=== PATIENT | female | born 1970 | race Caucasian/White ===

== ENCOUNTER → 2016-09-20 | Outpatient (CLI) | payer OTHER ==
--- NOTE | 2016-09-20 08:14 | CT ---
EXAMINATION TYPE: CT abdomen w con DATE OF EXAM: 09/20/2016 7:38 AM COMPARISON: 09/14/2010 HISTORY: Pain RUQ and mid upper abdomen CT DLP: 230.8 mGycm Automated exposure control for dose reduction was used. TECHNIQUE: Helical acquisition of images was performed from the lung bases through the top of iliac crest to include entire abdomen. CONTRAST: Performed with Oral Contrast and with IV Contrast, patient injected with 100 mL of Omnipaque 300. FINDINGS: LUNG BASES: No significant abnormality is appreciated. LIVER/GB: Postcholecystectomy clips are noted. Mild intrahepatic biliary dilation likely secondary to postcholecystectomy changes. Small hypodensity within the left lobe of the liver appears increased i n size from the previous exam of 2010 is too small to characterize measuring 6 mm. Still most likely in the basis of 8 hepatic cyst. The extrahepatic common bile duct measures 1 cm within normal limits for postcholecystectomy patient.. PANCREAS: No significant abnormality is seen. SPLEEN: No significant abnormality is seen. ADRENALS: No significant abnormality is seen. KIDNEYS: No significant abnormality is seen. BOWEL: No significant abnormality is seen. LYMPH NODES: No pathologic adenopathy identified. OSSEOUS STRUCTURES: Postsurgical change involving the lumbar vertebral column noted. OTHER: Aorta of normal caliber with atherosclerotic changes. IMPRESSION: POSTCHOLECYSTECTOMY CHANGES WITH MILD INTRA AND EXTRAHEPATIC BILIARY DUCTAL DILATION. 6 MM HYPODENSITY LEFT LOBE OF THE LIVER IS INCREASED IN SIZE FROM 2011 STILL LIKELY RELATED TO SIMPLE CYST. PROMINENT TO VENOUS STRUCTURES IN THE SPLENIC HILUM CORRELATE FOR SPLENIC VARICES. CORRELATE WITH JAISON ER FUNCTION STUDIES..
== END | disposition home or self-care (01) ==
LOC: RADCTMAIN 07:07
PROVIDERS: ATTEND Family Medicine
DX: K76.89 Other specified diseases of liver (principal); K83.8 Other specified diseases of biliary tract; Z90.49 Acquired absence of other specified parts of digestive tract
CPT/HCPCS: 74160; Q9967

== ENCOUNTER → 2016-09-22 | Outpatient (CLI) | payer OTHER ==
--- NOTE | 2016-09-22 12:32 | FL ---
EXAMINATION TYPE: FL UGI air DATE OF EXAM: 09/22/2016 9:45 AM COMPARISON: Correlation CT 09/20/2016 HISTORY: 46-year-old female with nausea and upper abdominal pain for 6 months. TECHNIQUE: A double contrast UGI study is performed. FINDINGS: The esophagus has a normal course, caliber, and mucosa. Mild tertiary peristaltic contractions are se en. There is a tiny sliding hiatal hernia demonstrated and mild spontaneous gastroesophageal reflux. Stomach shows moderate fold thickening and irregularity especially along the greater curvature. Otherwise, the stomach and duodenum are free of any persistent filling defect. Impression: 1. Tiny sliding hiatal hernia and mild spontaneous gastroesophageal reflux. 2. Moderate fold thickening and irregularity within the stomach, especially along the greater curvatu re. Correlate for gastritis. Given the fold irregularity, direct visualization should be considered.
== END | disposition home or self-care (01) ==
LOC: RADFLWHC 08:50
PROVIDERS: ATTEND Family Medicine
DX: K31.89 Other diseases of stomach and duodenum (principal); K21.9 Gastro-esophageal reflux disease without esophagitis; K44.9 Diaphragmatic hernia without obstruction or gangrene
CPT/HCPCS: 74246

== ENCOUNTER 2016-09-29 11:13 | Day surgery (SDC) | payer OTHER ==
[2016-09-28 08:37] VITALS: BMI 22.0
[~2016-09-29 11:13] MED LIST: LACTATED RINGERS 1,000 ML IV SCH
[2016-09-29 11:48] VITALS: TEMP 97.9
[2016-09-29] MEDS ORDERED: LIDOCAINE 1% 20 ML VIAL (10MG/ML) FOR IV START INTRADERMA ONE (11:50)
[2016-09-29] MEDS ORDERED: LIDOCAINE 1% INJ 10MG/ML (20 ML MDV) ONE (12:07)
[2016-09-29] MEDS ORDERED: PROPOFOL 10 MG/ML 20 ML VIAL IV ONE (12:07)
--- NOTE | 2016-09-29 12:26 | P.PCN ---
Date of Procedure: 09/29/16 Procedure(s) Performed: Procedure: Esophagogastroduodenoscopy and biopsy. Preoperative diagnosis: Epigastric pain, nausea and weight loss. Postoperative diagnosis: 1. Small sliding hiatal hernia with no obvious esophagitis or complicated reflux disease. 2. Mild gastritis and duodenitis. 3. Multiple biopsies obtained from the duodenum, antrum and esophagus. Preparation and sedation: Were provided by anesthesia. Brief clinical history: The patient is a 46-year-old female who is referred for this evaluation for the above reasons. This has been going on for a year or so and she has lost around 15 pounds over that period of time. Procedure: With the patient on her left lateral decubitus position and after informed consent and adequate sedation, I passed the Olympus-GIF 160 video upper endoscope through the cricopharyngeus down the esophagus. GE junction was around 36-37 cm from the incisors and there was a small sliding hiatal hernia. The esophagus did not show any erosions, ulcers, strictures or Curiel' s esophagus. The endoscope was then passed into the stomach which was insufflated with air and inspected in detail including the retroflex view in the cardia. There was some mottling and erythema in the antrum but no ulcers or erosions. Pyloric channel did not show any ulcers. Duodenal bulb, post bulbar area and descending duodenum showed some erythema. I obtained multiple biopsies from the duodenum, antrum and esophagus then the endoscope was withdrawn. The patient tolerated the procedure well. Plan: The patient was reassured. Will await biopsy results. She will follow- up with you as planned. Further plans based on her course.
[2016-09-29 12:53] VITALS: BP 122/81; PULSE 74; RESP 16
== END 2016-09-29 13:02 | disposition home or self-care (01) ==
LOC: ORWHC2ENDO 11:13
DX: K29.50 Unspecified chronic gastritis without bleeding (principal); K21.0 Gastro-esophageal reflux disease with esophagitis; K44.9 Diaphragmatic hernia without obstruction or gangrene; K29.80 Duodenitis without bleeding; G89.29 Other chronic pain; M54.16 Radiculopathy, lumbar region; Z79.891 Long term (current) use of opiate analgesic; Z79.899 Other long term (current) drug therapy; Z88.5 Allergy status to narcotic agent; Z72.0 Tobacco use
CPT/HCPCS: 81025; 88305; 88342; 43239; J2001; J2704

== ENCOUNTER → 2016-10-18 | Outpatient (CLI) | payer OTHER ==
--- NOTE | 2016-10-18 13:21 | CT ---
EXAMINATION TYPE: CT cervical spine wo con DATE OF EXAM: 10/18/2016 1:10 PM COMPARISON: 12/21/2015 HISTORY: 46-year-old female cervical radiculopathy TECHNIQUE: Contiguous axial scanning of the cervical spine without IV contrast. Coronal and sagittal reconstructions performed. CT DLP: 275.5 mGycm Automated exposure control for dose reduction was used. FINDINGS: No craniocervical junction abnormality, predental space widening, or prevertebral soft tissue swellin g. Redemonstrated are changes of ACDF from C4 through C7 levels. There appears to be some residual poste rior osteophytic ridging at C5-C6 and C6-C7. However, this does not contribute to significant narrowi ng of the spinal canal. Prominent metal hardware artifact does limit assessment of the spinal canal. The ACDF appears uncomplicated. Alignment is maintained. There is new posterior cervical fusion from C3 through C6 levels. The right-sided transfacet screws show some intra-articular extension at C4, C5, and C6. On the left, there is intra-articular extension greatest involving the C6 screw but also to a lesser extent involving the C4 and C5 screws. There is a small 5 mm long metal fragment to the right anterio r aspect of C7-T1 within the prevertebral soft tissues. Probably some type of retained surgical debri s, also seen on 12/21/2015. No significant neural foraminal stenosis appreciated. Mild biapical pleural-parenchymal scarring. IMPRESSION: 1. UNCOMPLICATED APPEARANCE TO THE C4-C7 ACDF. 2. NEW C3-C6 POSTERIOR CERVICAL FUSION DESCRIBED ABOVE. SOME OF THE TRANSFACET SCREWS MINIMALLY MN OJECT INTO THE FACET JOINTS. 3. NO OBVIOUS CANAL COMPROMISE ALLOWING FOR THE METAL HARDWARE ARTIFACT. NO SIGNIFICANT NEUROFORAMINA L STENOSIS SEEN.
== END | disposition home or self-care (01) ==
LOC: RADCTMAIN 12:41
PROVIDERS: ATTEND Neurological Surgery
DX: M54.12 Radiculopathy, cervical region (principal); M48.02 Spinal stenosis, cervical region; M54.41 Lumbago with sciatica, right side; G89.29 Other chronic pain; Z98.1 Arthrodesis status
CPT/HCPCS: 72125

== ENCOUNTER → 2017-01-25 | Outpatient (CLI) | payer OTHER ==
--- NOTE | 2017-02-01 10:58 | P.ARTDOP ---
Arterial Doppler LOWER EXTREMITY ARTERIAL DOPPLER: DATE OF SERVICE: 01/25/2017 Reason for study: Numbness in both feet and pain in both legs. Doppler waveforms: Multiphasic bilaterally throughout. Pulse volume recording: Normal configuration throughout. Pressure gradients: None. Ankle-brachial indices: Greater than 1 bilaterally. Toe pressures: 69 on the right, 73 on the left Impression: Normal study.
== END | disposition home or self-care (01) ==
LOC: RADUSWWP 10:17
PROVIDERS: ATTEND Family Medicine
DX: M79.604 Pain in right leg (principal); M79.605 Pain in left leg; R20.0 Anesthesia of skin
CPT/HCPCS: 93923

== ENCOUNTER → 2017-02-24 | Outpatient (CLI) | payer OTHER ==
--- NOTE | 2017-02-26 22:02 | MR ---
EXAMINATION TYPE: MR shoulder RT wo con DATE OF EXAM: 02/24/2017 COMPARISON: NONE HISTORY: Right shoulder pain with Limited ROM X1 year TECHNIQUE: Multiplanar, multisequence imaging of the right shoulder is performed without contrast. FINDINGS: Rotator Cuff: Supraspinatus and infraspinatus tendons are intact. Rotator cuff muscle bulk is preserv ed. Subscapularis tendon is intact. Acromioclavicular Joint: There is type II downsloping acromion. Acromioclavicular joint otherwise hayden ears within normal limits. Glenohumeral Joint: There is small glenohumeral joint effusion. Labrum: The labrum appears grossly intact given limitation of non-arthrogram study. Biceps Tendon: The long head of biceps is in normal location within bicipital groove. Bone marrow signal: Tubular T2 hyperintense lesions proximal humeral diaphysis likely reflect promine nt cortical vessels. Other: Subdeltoid/subacromial fluid is seen. IMPRESSION: Type II downsloping acromion with mild to moderate subdeltoid/subacromial bursitis. No ro tator cuff or labral tear is seen.
== END | disposition home or self-care (01) ==
LOC: RADMRIMAIN 17:46
PROVIDERS: ATTEND Neurological Surgery
DX: M75.51 Bursitis of right shoulder (principal)

== ENCOUNTER → 2017-06-29 | Outpatient (CLI) | payer OTHER ==
--- NOTE | 2017-07-03 10:14 | MM ---
Reason for exam: screening (asymptomatic). Last mammogram was performed 1 year and 2 months ago. History: Patient is postmenopausal and history of other cancer. Family history of breast cancer in maternal grandmother. Benign excisional biopsy of the right breast, October 2008. Cancelled Right US Needle Biopsy of the right breast, July 25, 2008. Physical Findings: A clinical breast exam by your physician is recommended on an annual basis and results should be correlated with mammographic findings. MG Screening Mammo w CAD Bilateral CC and MLO view(s) were taken. Prior study comparison: May 05, 2016, bilateral MG diagnostic mammo w CAD [facility]. August 06, 2015, bilateral MG 3d diag mammo w/cad [facility]. The breast tissue is extremely dense which could obscure a lesion on mammography. No significant changes when compared with prior studies. ASSESSMENT: Benign, BI-RAD 2 RECOMMENDATION: Routine screening mammogram of both breasts in 1 year.
== END | disposition home or self-care (01) ==
LOC: RADMAMWWP 08:19
PROVIDERS: ATTEND Family Medicine
DX: Z12.31 Encounter for screening mammogram for malignant neoplasm of breast (principal)

== ENCOUNTER → 2017-08-22 | Outpatient (CLI) | payer OTHER ==
[2017-08-22 11:17] LABS: Basophils # (A) 0.1 k/uL (0-0.2); Basophils % (A) 1 %; Eosinophils # (A) 0.2 k/uL (0-0.7); Eosinophils % (A) 3 %; HCT 44.4 % (34.0-46.0); HGB 13.9 gm/dL (11.4-16.0); Lymphocytes # (A) 1.6 k/uL (1.0-4.8); Lymphocytes % (A) 28 %; MCH 29.5 pg (25.0-35.0); MCHC 31.2 g/dL (31.0-37.0); MCV 94.7 fL (80.0-100.0); Mean Platelet Volume 8.1; Monocytes # (A) 0.2 k/uL (0-1.0); Monocytes % (A) 3 %; Neutrophils # (A) 3.7 k/uL (1.3-7.7); Neutrophils % (A) 63 %; Platelet Count 224 k/uL (150-450); RBC 4.69 m/uL (3.80-5.40); RDW 13.3 % (11.5-15.5); WBC 5.8 k/uL (3.8-10.6)
[2017-08-22 11:36] LABS: C Reactive Protein 5.7 mg/L (<10.0)
[2017-08-22 12:56] LABS: Appearance,Urine Clear (Clear); Bilirubin,Urine Negative (Negative); Blood,Urine Negative (Negative); Color,Urine Yellow; Glucose,Urine (UA) Negative (Negative); Ketones,Urine Negative (Negative); Leukocyte Esterase,Urine Negative (Negative); Nitrite,Urine Negative (Negative); PH, Urine 5.5 (5.0-8.0); Protein,Urine Negative (Negative); Specific Gravity,Urine 1.015 (1.001-1.035); Urobilinogen,Urine <2.0 mg/dL (<2.0)
[2017-08-22 16:22] LABS: Cyclic Citrullinated Pep IgG NEGATIVE (NEGATIVE); RNP <0.2 AI; Scleroderma SC-70 Ab <0.2 AI
[2017-08-22 16:23] LABS: Cardiolipin Ab IgG Interp NEGATIVE (NEGATIVE); Cardiolipin Ab IgM Interp NEGATIVE (NEGATIVE); Cardiolipin IgA Antibody 2.5 U/mL; Cardiolipin IgM Antibody 1.9 U/mL
[2017-08-23 10:36] LABS: APTT 41 Sec(s) (<43); Dilute Russell Viper Venom 40 Sec(s) (<44)
[2017-08-23 12:22] LABS: Complement C3 97.6 mg/dL (80.0-207.0)
[2017-08-23 14:53] LABS: C-ANCA <1:20 Titer (<1:20); P-ANCA <1:20 Titer (<1:20)
== END | disposition home or self-care (01) ==
LOC: LABWHC1 10:36
PROVIDERS: ATTEND Internal Medicine Rheumatology
DX: M19.049 Primary osteoarthritis, unspecified hand (principal); M75.51 Bursitis of right shoulder; M25.561 Pain in right knee; R76.0 Raised antibody titer
CPT/HCPCS: 36415; 81003; 82565; 83516; 85025; 85613; 85730; 86140; 86147; 86160; 86200; 86235; 86255; 86850; 86880

== ENCOUNTER → 2018-09-25 | Outpatient (CLI) | payer MEDICARE, OTHER ==
--- NOTE | 2018-09-26 11:03 | MM ---
Reason for exam: screening (asymptomatic). Last mammogram was performed 1 year and 3 months ago. History: Patient is postmenopausal and history of other cancer. Family history of breast cancer in maternal grandmother. Benign excisional biopsy of the right breast, October 2008. Cancelled Right US Needle Biopsy of the right breast, July 25, 2008. Physical Findings: A clinical breast exam by your physician is recommended on an annual basis and results should be correlated with mammographic findings. MG 3D Screening Mammo W/Cad Bilateral CC and MLO view(s) were taken. Prior study comparison: June 29, 2017, bilateral MG screening mammo w CAD. May 05, 2016, bilateral MG diagnostic mammo w CAD [facility]. The breast tissue is heterogeneously dense. This may lower the sensitivity of mammography. There is no discrete abnormality. No significant changes when compared with prior studies. ASSESSMENT: Negative, BI-RAD 1 RECOMMENDATION: Routine screening mammogram of both breasts in 1 year.
== END ==
LOC: RADMAMWWP 10:25
PROVIDERS: ATTEND Family Medicine
DX: Z12.31 Encounter for screening mammogram for malignant neoplasm of breast (principal); Z80.3 Family history of malignant neoplasm of breast
CPT/HCPCS: 77063; 77067

== ENCOUNTER → 2021-02-05 | Outpatient (CLI) | payer MEDICARE ==
--- NOTE | 2021-02-06 04:12 | MR ---
EXAMINATION TYPE: MR cervical spine wo/w con DATE OF EXAM: 02/05/2021 COMPARISON: 04/20/2015 HISTORY: Neck, shoulder and head pain x3 or more years CONTRAST: Standard multiplanar, multisequence MRI departmental protocol utilizing 6.5ml mL intravenous Gadavist gadolinium contrast. Vertebra have normal alignment. There is extensive metal artifact from anterior fusion surgery from C 4 to C7 level. Cervical spinal cord shows normal signal pattern. There is no edema. I see no spinal s tenosis. Brainstem is intact. The skull base appears intact. There is no evidence of compression frac ture. There is no evidence of cervical paraspinal mass. There is metal artifact from posterior fusion surgery. Spinal canal measures 10 mm at the narrowest point which is C7-T1 level. Contrast images sh ow no pathologic enhancement. IMPRESSION: Anterior and posterior fusion surgery. No spinal stenosis. Surgery is a change compared to old exam. No definite complicating process seen.
== END | disposition home or self-care (01) ==
LOC: RADMRIMAIN 16:58
PROVIDERS: ATTEND Neurological Surgery
DX: M50.10 Cervical disc disorder with radiculopathy, unspecified cervical region (principal); Z98.1 Arthrodesis status
CPT/HCPCS: 72156; A9585

== ENCOUNTER → 2025-02-06 | Outpatient (CLI) | payer MEDICARE ==
--- NOTE | 2025-02-06 17:13 | CT ---
EXAMINATION TYPE: CT brain wo con CT DLP: 1071.6 mGycm, Automated exposure control for dose reduction was used. DATE OF EXAM: 02/06/2025 5:02 PM COMPARISON: MR brain 06/21/2017 CLINICAL INDICATION:Female, 54 years old with history of R51.9 HEADACHE L03.211 CELLULITIS OF FACE B0 2.9, Right side facial bruising x 3 weeks ago- no injury TECHNIQUE: Brain: Multiple axial CT images of the brain were obtained without IV contrast. . Coronal and sagitta l reformats reviewed. FINDINGS: Brain: Extra-axial spaces: No abnormal extra-axial fluid collections. Ventricular system: Within normal limits Cerebral parenchyma: No acute intraparenchymal hemorrhage or mass effect. The staley-white junction is well differentiated. Scattered hypoattenuating areas are seen within the periventricular white matte r. Cerebellum: Unremarkable. Mass effect: No evidence of midline shift. Intracranial vasculature: unremarkable Soft tissues: Normal. Calvarium/osseous structures: No depressed skull fracture. Paranasal sinuses and mastoid air cells: Air-fluid level within the left maxillary sinus. Aplasia of the left frontal sinus. The remaining paranasal sinuses are clear. The left mastoid air cells are juliette ar. Partial opacification inferior right mastoid air cells. Visualized orbits: Orbital contents are intact. IMPRESSION: 1. No acute intracranial process. 2. Nonspecific minimal white matter changes, likely secondary to chronic small vessel ischemic diseas e. 3. Air-fluid level within the left maxillary sinus. Correlate clinically for acute sinusitis. 4. Chronic partial right mastoid effusion. [facility], , 02/06/2025 5:11 PM
== END | disposition home or self-care (01) ==
LOC: RADCTMAIN 16:06
PROVIDERS: ATTEND Family Medicine
DX: R51.9 Headache, unspecified (principal); L03.211 Cellulitis of face; B02.9 Zoster without complications
CPT/HCPCS: 70450